=== PATIENT | female | born 1935 | race Caucasian/White ===

== ENCOUNTER 2018-02-18 07:25 | Outpatient (CLI) | payer OTHER | END 2018-02-18 07:29 | disposition home or self-care (01) | LOC: NUCLEAR 07:25 | DX: R07.89 Other chest pain (principal); R94.31 Abnormal electrocardiogram [ECG] [EKG] | CPT/HCPCS: 78452; 93017; A9500; J0153 ==

== ENCOUNTER 2019-10-03 10:37 | Outpatient (CLI) | payer OTHER | END 2019-10-03 12:30 | disposition home or self-care (01) | LOC: RAD 10:37 | DX: J44.9 Chronic obstructive pulmonary disease, unspecified (principal) ==